=== PATIENT | male | born 1950 | race Caucasian/White ===

== ENCOUNTER 2022-02-02 15:20 | Inpatient (IN) | payer OTHER ==
[~2022-02-02] VITALS: Ht 177.8 cm; Wt 83.7 kg
[~2022-02-02 15:20] MED LIST: ALBU90OI INH; ASCO500 PO; ASPI81CH PO; CVS CALCIUM 501 EAC2 PO; CYCL10 PO; DONE10 PO; LEVO750 PO; Norco 5-325 Ta1 EACH PO; PANT40 PO; TADA10TA PO; TAMS.4ER PO; VITAMIN D32000 UNI1 PO; Vitamin B-12100 MCG PO; Zocor20 MG PO
[2022-02-02 16:20] LABS: BASOPHILS ABSOLUTE AUTO 0.05 K/mm3 (0.00-0.23); BASOPHILS PERCENT AUTO 0 % (0-2); EOSINOPHILS PERCENT AUTO 0 % (0-6); Hemoglobin 13.8 g/dL (13.5-17.5); IMMATURE GRAN ABSOLUTE AUTO 0.25 K/mm3 (0.00-0.10); IMMATURE GRAN PERCENT AUTO 1 % (0-1); LYMPHOCYTES ABSOLUTE AUTO 1.52 K/mm3 (0.84-5.20); LYMPHOCYTES PERCENT AUTO 5 % (21-46); MONOCYTES ABSOLUTE AUTO 1.14 K/mm3 (0.16-1.47); MONOCYTES PERCENT AUTO 4 % (4-13); Mean Corpuscular HGB 31.8 pg (26.0-34.0); Mean Corpuscular HGB Conc 36.3 g/dL (31.5-36.5); Mean Corpuscular Volume 88 fL (80-100); Mean Platelet Volume 8.4 fL (9.1-12.4); NEUTROPHILS ABSOLUTE AUTO 24.95 K/mm3 (1.96-9.15); NEUTROPHILS PERCENT AUTO 89 % (41-73); Platelet Count 434 K/mm3 (150-400); RDW Coefficient Variation 14.9 % (11.7-14.2); RDW Standard Deviation 47.7 fL (35.1-46.3); Red Blood Cell Count 4.34 M/mm3 (4.30-5.90); White Blood Cell Count 27.91 K/mm3 (4.00-11.30)
[2022-02-02 16:42] LABS: Albumin, Blood 3.1 g/dL (3.4-5.0); Albumin/Globulin Ratio 0.8 (0.8-1.8); Bilirubin, Total 0.9 mg/dL (0.1-1.0); Bun/Creatinine Ratio 16.1 (12.0-20.0); Calcium, Blood 8.6 mg/dL (8.5-10.1); Creatinine, Blood 1.49 mg/dL (0.60-1.20); Globulin, Blood 3.7 g/dL (2.2-4.0); Potassium, Blood 4.3 mmol/L (3.5-5.5); Total Protein, Blood 6.8 g/dL (6.4-8.2)
[2022-02-02 23:00] LABS: Influenza A, PCR NEGATIVE (NEGATIVE); Influenza B, PCR NEGATIVE (NEGATIVE); Resp Syncytial Virus, PCR NEGATIVE (NEGATIVE)
[2022-02-02 23:05] LABS: SARS-Cov-2 (COVID-19) PCR, MMC POSITIVE (NEGATIVE)
[2022-02-03 00:54] LABS: BASOPHILS ABSOLUTE AUTO 0.05 K/mm3 (0.00-0.23); BASOPHILS PERCENT AUTO 0 % (0-2); EOSINOPHILS ABSOLUTE AUTO 0.07 K/mm3 (0.00-0.68); EOSINOPHILS PERCENT AUTO 0 % (0-6); Hematocrit 33.1 % (37.0-53.0); Hemoglobin 12.1 g/dL (13.5-17.5); IMMATURE GRAN ABSOLUTE AUTO 0.09 K/mm3 (0.00-0.10); IMMATURE GRAN PERCENT AUTO 1 % (0-1); LYMPHOCYTES ABSOLUTE AUTO 2.14 K/mm3 (0.84-5.20); LYMPHOCYTES PERCENT AUTO 11 % (21-46); MONOCYTES ABSOLUTE AUTO 0.96 K/mm3 (0.16-1.47); MONOCYTES PERCENT AUTO 5 % (4-13); Mean Corpuscular HGB 32.2 pg (26.0-34.0); Mean Corpuscular HGB Conc 36.6 g/dL (31.5-36.5); Mean Corpuscular Volume 88 fL (80-100); Mean Platelet Volume 8.4 fL (9.1-12.4); NEUTROPHILS ABSOLUTE AUTO 15.67 K/mm3 (1.96-9.15); NEUTROPHILS PERCENT AUTO 82 % (41-73); Platelet Count 358 K/mm3 (150-400); RDW Coefficient Variation 15.2 % (11.7-14.2); Red Blood Cell Count 3.76 M/mm3 (4.30-5.90); White Blood Cell Count 18.98 K/mm3 (4.00-11.30)
--- NOTE | 2022-02-03 01:09 | NUR ---
ADMIT NOTE PT ARRIVES TO 363 BY WHEELCHAIR AT 0000. PT TESTED POSITIVE FOR COVID IN THE ER THIS EVENING. PT ACCOMPANIED PT. PT HAS NO COMPLAINTS AT THIS TIME. ON ROOM AIR. PT INDEPENDENT IN ROOM. PT GIVEN SNACKS, WARM BLANKET, AND HAS HIS CALL LIGHT WITHIN HIS REACH.
[2022-02-03 01:13] LABS: Albumin, Blood 2.5 g/dL (3.4-5.0); Albumin/Globulin Ratio 0.7 (0.8-1.8); Bilirubin, Total 0.5 mg/dL (0.1-1.0); Bun/Creatinine Ratio 21.1 (12.0-20.0); Calcium, Blood 7.6 mg/dL (8.5-10.1); Creatinine, Blood 1.23 mg/dL (0.60-1.20); Globulin, Blood 3.4 g/dL (2.2-4.0); Potassium, Blood 3.4 mmol/L (3.5-5.5); Total Protein, Blood 5.9 g/dL (6.4-8.2)
--- NOTE | 2022-02-03 01:51 | NUR ---
NOTE LACTIC ACID 2.5 AT 0130. DISCUSSED WITH LIVESTOCK COUNTER AND DECIDED IT WAS TRENDING IN EXPECTED DIRECTION AND A PHONE CALL TO PHYSICIAN WAS NOT NEEDED AT THIS TIME.
--- NOTE | 2022-02-03 04:52 | NUR ---
SHIFT SUMMARY NO CURRENT COMPLAINTS. PT RESTING QUIETLY IN BED. CALL LIGHT WITHIN REACH.
--- NOTE | 2022-02-03 11:19 | NUR ---
PATIENT WAS FEELING SOB THIS AM. SAO2 BELOW 90. RT WAS CALLED FOR A TREATMENT. RT DID INITIATE 1 L OX NC. HELPFUL FOR PT. LS-RALES BILATERAL. PATIENT STATES NO NAUSEA TODAY. PAIN MEDICATION COMPLETELY TOOK PAIN TO A 0. POTASSIUM SLIGHTLY LOW, SO ONE TIME ORAL REPLACEMENT GIVEN.
--- NOTE | 2022-02-03 18:44 | NUR ---
PATIENT IS ASKING FOR ANOTHER COVID TEST, BECAUSE HE FEELS NEGATIVE. MUCH IMPROVED. HE WAS INFORMED ABOUT HOW WE DATE OUR ALREADY TAKEN COVID TEST, BUT THAT DOESN'T MEAN HE CAN NOT GO HOME. PATIENT IS ON 02, AND WOULD LIKE TO BE WEEKEND OVERNIGHT TO SEE IF SATS CAN MAINTAIN ABOVE 90. PATIENT IS ALERT AND PLEASANT. HE REPORTS THAT HE HAS NO BODY ACHES AND FEELS SO MUCH BETTER. HE WOULD LIKE TO GO HOME.
--- NOTE | 2022-02-03 19:34 | NUR ---
RECEIVED REPORT FROM RAMON RN. WILL PROVIDE CARE T/O SHIFT. CALL LT IN REACH. PT IS A/O.
--- NOTE | 2022-02-03 22:00 | NUR ---
PT RESTING QUIETLY. CALL LT IN REACH.
--- NOTE | 2022-02-04 00:20 | NUR ---
PT RESTING QUIETLY. CALL LT IN REACH.
--- NOTE | 2022-02-04 02:24 | NUR ---
PT RESTING QUIETLY. CALL LT IN REACH.
--- NOTE | 2022-02-04 04:00 | NUR ---
PT RESTING. CALL LT IN REACH.
[2022-02-04 04:27] LABS: BASOPHILS ABSOLUTE AUTO 0.01 K/mm3 (0.00-0.23); BASOPHILS PERCENT AUTO 0 % (0-2); EOSINOPHILS PERCENT AUTO 0 % (0-6); Hematocrit 32.8 % (37.0-53.0); Hemoglobin 11.5 g/dL (13.5-17.5); IMMATURE GRAN PERCENT AUTO 1 % (0-1); LYMPHOCYTES ABSOLUTE AUTO 1.16 K/mm3 (0.84-5.20); LYMPHOCYTES PERCENT AUTO 8 % (21-46); MONOCYTES ABSOLUTE AUTO 0.53 K/mm3 (0.16-1.47); MONOCYTES PERCENT AUTO 3 % (4-13); Mean Corpuscular HGB 31.1 pg (26.0-34.0); Mean Corpuscular HGB Conc 35.1 g/dL (31.5-36.5); Mean Corpuscular Volume 89 fL (80-100); Mean Platelet Volume 8.8 fL (9.1-12.4); NEUTROPHILS ABSOLUTE AUTO 13.65 K/mm3 (1.96-9.15); NEUTROPHILS PERCENT AUTO 88 % (41-73); Platelet Count 370 K/mm3 (150-400); RDW Coefficient Variation 15.3 % (11.7-14.2); RDW Standard Deviation 49.2 fL (35.1-46.3); White Blood Cell Count 15.45 K/mm3 (4.00-11.30)
[2022-02-04 04:50] LABS: Bun/Creatinine Ratio 39.9 (12.0-20.0); Calcium, Blood 8.4 mg/dL (8.5-10.1); Creatinine, Blood 0.83 mg/dL (0.60-1.20); Potassium, Blood 4.8 mmol/L (3.5-5.5)
--- NOTE | 2022-02-04 05:02 | NUR ---
SHIFT SUMMARY: PT RESTED WELL T/O SHIFT. STATES HE'S FEELING REALLY GOOD AND HOPES TO BE ABLE TO GO HOME TODAY. HAS BEEN AMBULATING IN ROOM ALL DAY PER PT AND DOING WELL WITH HIS BREATHING. CURRENTLY ON 1L VIA NC. NO ACUTE CHANGES. WILL CONTINUE TO PROVIDE CARE UNTIL SHIFT REPORT TO ONCOMING NURSE.
--- NOTE | 2022-02-04 06:21 | NUR ---
PT RESTING QUIETLY. CALL LT IN REACH.
[2022-02-04] MEDS ORDERED: DONEPEZIL HCL10 MG PO (15:28)
[2022-02-04] MEDS ORDERED: AZIT500 PO (15:29)
[2022-02-04] MEDS ORDERED: VISBIOME 112.51 EACH PO (15:30)
[2022-02-04] MEDS ORDERED: CEFP200 PO (15:30)
[2022-02-04] MEDS ORDERED: PRED20 PO (15:31)
== END 2022-02-04 15:51 | disposition home or self-care (01) | DRG 193 ==
LOC: ER 15:20 → MEDS 15:21 → ER 15:21 → MEDS 23:56
PROVIDERS: Internal Medicine; Physician Assistant; Student in an Organized Health Care Education/Training Program; ADMIT Internal Medicine
DX: J18.9 Pneumonia, unspecified organism (principal); J96.01 Acute respiratory failure with hypoxia; U07.1 COVID-19; J43.9 Emphysema, unspecified; N40.0 Benign prostatic hyperplasia without lower urinary tract symptoms; E78.5 Hyperlipidemia, unspecified; N18.2 Chronic kidney disease, stage 2 (mild); E87.6 Hypokalemia; D72.829 Elevated white blood cell count, unspecified; K21.9 Gastro-esophageal reflux disease without esophagitis; M54.9 Dorsalgia, unspecified; G89.29 Other chronic pain; G31.84 Mild cognitive impairment of uncertain or unknown etiology; N52.9 Male erectile dysfunction, unspecified; Z98.52 Vasectomy status; Z87.891 Personal history of nicotine dependence; Z79.899 Other long term (current) drug therapy; Z98.890 Other specified postprocedural states; Z88.8 Allergy status to other drugs, medicaments and biological substances
CPT/HCPCS: 0241U; 36415; 71046; 80048; 80053; 83605; 83690; 83880; 84145; 84484; 85025; 87040; 93005; 93010; 94640; 94664; 94760; 96361; 96365; 96372; 96375; 99285-25; A9270; G0378; J0456; J0696; J1650; J2930; J7030; J7050

== ENCOUNTER 2022-12-09 08:41 | Observation (INO) | payer OTHER ==
[2022-12-09] VITALS (17 sets, daily range): BP systolic 112–127; BP diastolic 66–79
[~2022-12-09] VITALS: Ht 175.3 cm; Wt 81.3 kg
[~2022-12-09 08:41] MED LIST changes: +AZIT500 PO; +CEFP200 PO; +DONEPEZIL HCL10 MG PO; +Flomax0.4 MG PO; +HYDACE10B PO; +PRED20 PO; +Pepcid40 MG PO; +TADA10TA; +TIOT18 INH; +UBID10 PO; +VISBIOME 112.51 EACH PO
--- NOTE | 2022-12-09 09:49 | NUR ---
Ambulatory in Day Surgery. History, Chart, Medications and Allergies reviewed before start of procedure. Lungs clear T/O to Auscultation. Patient confirms NPO status and agrees with scheduled surgery. Pre-Op teaching done. Pt verbalizes understanding. PT BELONGINGS PLACED UNDERNEATH GURNEY FOR SAFEKEEPING. PT RINGS AND GLASSES GIVEN TO DAUGHTER FOR SAFEKEEPING.
--- NOTE | 2022-12-09 17:05 | NUR ---
PATIENT CAME BACK FROM PACU TODAY AT 1635. POD 0 LAP PARAESOPHAGEAL HERNIA REPAIR PATIENT HAS A HX OF DEMENTIA BUT IS ABLE TO ANSWER QUESTIONS APPROPRIATELY AT THIS TIME. VS ARE WNL AND IS ON RA. PATIENT REPORTS 6/10 PAIN AND WAS GIVEN PO PAIN MEDICATIONS WHICH SO FAR HAS MANAGED PAIN. PATIENT HAS X4 ABD LAP SITES WITH WOUND GLUE THAT ARE C/D/I. DENIES NAUSEA OR VOMITING. HE IS TOLERATING SMALL AMOUNTS OF PO INTAKE. HE IS LAYING IN BED WITH CALL LIGHT WITHIN REACH AND BED ALARM ON DUE TO HX OF DEMENTIA. DAUGHTER IS AT BEDSIDE.
[2022-12-10 03:11] VITALS: BP 128/80
[2022-12-10 04:11] LABS: Hematocrit 40.1 % (37.0-53.0); Hemoglobin 14.2 g/dL (13.5-17.5); Mean Corpuscular HGB 32.4 pg (26.0-34.0); Mean Corpuscular HGB Conc 35.4 g/dL (31.5-36.5); Mean Corpuscular Volume 92 fL (80-100); Platelet Count 278 K/mm3 (150-400); RDW Coefficient Variation 13.8 % (11.7-14.2); RDW Standard Deviation 46.9 fL (35.1-46.3); Red Blood Cell Count 4.38 M/mm3 (4.30-5.90); White Blood Cell Count 10.13 K/mm3 (4.00-11.30)
--- NOTE | 2022-12-10 05:20 | NUR ---
PATIENT IS POD1 FUNDOPLICATION. LAP SITES X4 OSWALDO, CDI. DENIES PAIN AND NEED FOR PAIN MEDIATION. PATIENT UP TO AMBULATE WITH SBA. UNABLE TO VOID SPONTANELOUSLY THIS SHIFT BLADDER SCAN AT 895ML. THIS RN TO PREFORM STRAIGHT CATH. PATIENT EDUCATED AND CONSENTS. PATIENT REPORTS THAT HE "TAKES FLOMAX AT HOME AND HAS NOT HAD IT IN A FEW DAYS". VSS, CALL LIGHT IS IN REACH. WILL REPORT TO DAY SHIFT RN.
[2022-12-10 07:12] VITALS: BP 129/81
[2022-12-10 16:24] VITALS: BP 121/75
--- NOTE | 2022-12-10 17:25 | NUR ---
DISCHARGE SUMMARY POD1 HIATAL HERNIA REPAIR WITH TOUPE FUNDUPLICATION, A/OX4, VSS, TOLERATING PO, PAIN WELL MANAGED, HE HAD SOME URINARY RETENTION OVER NIGHT WHICH HAD IMPROVE T/O THE DAY, HE REPORTS THAT THE BURNING WHEN HE VOIDS CAUSED HIM TO CUT HIS VOIDS SHORT. HIS VOIDS WERE MONITORED T/O THE SHIFT AND AFTER HE WAS ABLE TO HAVE A GOOD AMOUNT OUT HE WAS APPROVED FOR DISCHARGE. DISUSSED DISCHARGE INFORMATION WITH HIM INCLUDING HOME CARE, MEDICATIONS, DIET, AND FOLLOW UP APPOINTMENTS. PT DELCINED WC ESCORT AND LEFT AMBULATORY AFTER SIGNING HIS DC PAPERS. IV REMOVED BEFORE DEPARTURE.
== END 2022-12-10 17:10 | disposition home or self-care (01) ==
LOC: PRE IP 08:41 → SURS 08:41 → PRE IP 11:00 → SURS 16:21
PROVIDERS: ADMIT Surgery
DX: K44.9 Diaphragmatic hernia without obstruction or gangrene (principal); K21.9 Gastro-esophageal reflux disease without esophagitis; E78.5 Hyperlipidemia, unspecified; Z86.16 Personal history of COVID-19; Z87.891 Personal history of nicotine dependence; Z88.8 Allergy status to other drugs, medicaments and biological substances; Z88.6 Allergy status to analgesic agent; Z79.899 Other long term (current) drug therapy
CPT/HCPCS: 36415; 85027; 94640; 94664; 94760; A9270; C1781; J1100; J1650; J1885; J2250; J2405; J2704; J2710; J3010; J7120

== ENCOUNTER 2023-10-16 08:19 | Day surgery (SDC) | payer OTHER ==
[2023-10-16] VITALS (9 sets, daily range): BP systolic 116–128; BP diastolic 70–96
[~2023-10-16] VITALS: Ht 177.8 cm; Wt 81.8 kg
[~2023-10-16 08:19] MED LIST changes: +COQ1050 MG PO; -TADA10TA
[2023-10-16] MEDS ORDERED: Lactated Ringer's 1,000 ML IV SCH (09:05)
[2023-10-16] MEDS ORDERED: propofoL 20 ML IV ONE (09:07)
[2023-10-16] MEDS ORDERED: Vitamin D1000 UNI1 PO (09:07)
[2023-10-16] MEDS ORDERED: FentaNYL Citrate 50 MCG/ML 2 ML Injection ONE ×2 (09:08→10:47)
[2023-10-16] MEDS ORDERED: Lidocaine HCl 1% 5 ML SYR INJ ONE (09:15)
[2023-10-16] MEDS ORDERED: Midazolam HCl 1MG / ML 2ML Vial IV ONE (09:15)
[2023-10-16] MEDS ORDERED: FentaNYL Citrate 50 MCG/ML 2 ML Injection IV PRN ×3 (09:15→09:20)
[2023-10-16] MEDS ORDERED: Ondansetron HCl 2 MG / ML 2ML Vial IV PRN (09:20)
--- NOTE | 2023-10-16 09:58 | NUR ---
[facility] PRE OP NOTE PT A&OX4, BREATHING RA, VSS, DAUGHTER AT BEDSIDE. GLASSES AND CELL PHONE WITH DAUGHTER. Ambulatory in Day Surgery Patient confirms NPO status and agrees with scheduled surgery. Pre-Op teaching done. Pt verbalizes understanding. Patient States Post-Procedure ride home has been arranged.
[2023-10-16] MEDS ORDERED: Bupivacaine 0.5% HCl 5 MG/ML 30MLVIAL ONE (09:59)
[2023-10-16] MEDS ORDERED: Phenylephrine HCl 100 MCG/ML-NS 10MLSYR (1MG/10ML) ONE (10:27)
[2023-10-16] MEDS ORDERED: Ondansetron HCl 2 MG / ML 2ML Vial ONE (10:29)
[2023-10-16] MEDS ORDERED: Dexamethasone Sod Phos 10 MG/ML 1ML VIAL ONE (10:29)
[2023-10-16] MEDS ORDERED: ePHEDrine Sulfate 50 MG/ML 1ML Injection ONE (10:33)
[2023-10-16] MEDS ORDERED: HYDROcodone 5-APAP 325 TAB PO PRN (11:55)
--- NOTE | 2023-10-16 12:37 | NUR ---
Discharge instructions reviewed with patient. Patient verbalizes understanding. Copy given to patient to take home. Dressing c/d/i. Patient States Post-Procedure ride home has been arranged. Discharged via wheelchair to private car for ride home.
== END 2023-10-16 12:45 | disposition home or self-care (01) ==
LOC: ORSCMMR 08:19 → ORD 11:00 → ORSCMMR 12:45
PROVIDERS: Surgery
PROC: 0YU60JZ Supplement Left Inguinal Region with Synthetic Substitute, Open Approach (ICD-10-PCS; principal; 2023-10-16 11:00)
DX: K40.90 Unilateral inguinal hernia, without obstruction or gangrene, not specified as recurrent (principal); K21.9 Gastro-esophageal reflux disease without esophagitis; D17.6 Benign lipomatous neoplasm of spermatic cord; Z87.891 Personal history of nicotine dependence; N40.0 Benign prostatic hyperplasia without lower urinary tract symptoms; Z79.899 Other long term (current) drug therapy
CPT/HCPCS: C1781; J1100; J2250; J2371; J2405; J2704; J3010; J7120

== ENCOUNTER 2025-02-18 13:52 | Emergency (ER) | payer OTHER ==
[~2025-02-18] VITALS: Ht 177.8 cm; Wt 79.8 kg
[~2025-02-18 13:52] MED LIST changes: +Vitamin D1000 UNI1 PO
[2025-02-18 14:14] VITALS: BP 118/70
== END 2025-02-18 18:06 | disposition home or self-care (01) ==
LOC: ER 13:52
DX: M17.12 Unilateral primary osteoarthritis, left knee (principal); I10 Essential (primary) hypertension; I25.10 Atherosclerotic heart disease of native coronary artery without angina pectoris; J44.9 Chronic obstructive pulmonary disease, unspecified; Z87.891 Personal history of nicotine dependence
CPT/HCPCS: 99282